=== PATIENT | male | born 1960 | race Caucasian/White ===

== ENCOUNTER 2019-10-15 06:41 | Emergency (ER) | payer OTHER ==
[~2019-10-15] VITALS: Ht 162.6 cm; Wt 86.2 kg
[2019-10-15 06:41] VITALS: BP 191/103
[2019-10-15] MEDS ORDERED: PRINIVIL10 MG PO (06:45)
[2019-10-15] MEDS ORDERED: ALPRAZOLAM 0.0.25 M1 PO (06:46)
[2019-10-15] MEDS ORDERED: HYDROCODON-ACE1 EA10 PO (06:48)
[2019-10-15 07:33] LABS: ABSOLUTE NEUTROPHILS 4.3 thou/uL (1.4-8.2); BASOPHILS 0.9 % (0.0-2.0); EOSINOPHILS 3.9 % (0.0-3.0); HEMATOCRIT 41.8 % (42.0-52.0); LYMPHOCYTES 26.9 % (24.0-44.0); MCH 29.2 pg (26.0-34.0); MCHC 33.6 g/dL (28.0-37.0); MCV 87.1 fL (80.0-100.0); MONOCYTES 10.7 % (1.0-8.0); PLATELET COUNT 368 thou/uL (150-400); POLYS 57.6 % (36.0-66.0); RDW 14.1 % (10.5-14.5); WBC 7.6 thou/uL (4.0-11.0)
[2019-10-15 07:46] LABS: CALCIUM 8.6 mg/dL (8.5-10.1); CREATININE 0.9 mg/dL (0.7-1.3); POTASSIUM 3.8 mmol/L (3.5-5.1)
[2019-10-15 09:19] VITALS: BP 159/105
[2019-10-15 09:27] LABS: URINE BILIRUBIN NEGATIVE (Negative); URINE BLOOD NEGATIVE (Negative); URINE CLARITY CLEAR; URINE COLOR YELLOW; URINE GLUCOSE-RANDOM* NEGATIVE (Negative); URINE KETONES NEGATIVE (Negative); URINE LEUKOCYTES NEGATIVE (Negative); URINE NITRITE NEGATIVE (Negative); URINE PROTEIN (DIPSTICK) NEGATIVE (Negative); URINE UROBILINOGEN 0.2 E.U./dl (0.2-1.0)
--- NOTE | 2019-10-15 09:31 | NUR ---
PT DENIES A PREFERRED PHARMACY DUE TO BEING IN A REHAB FACILITY AT THIS TIME.
[2019-10-15] MEDS ORDERED: AUGMENTIN 875-1 EACH PO ×8 (11:35→12:29)
[2019-10-15] MEDS ORDERED: CIPRODEX OTIC7.5 ML OTIC ×8 (11:35→12:29)
--- NOTE | 2019-10-15 11:44 | NUR ---
GAMALIEL CALLED AND SCHEDULED TO PICK PT UP AND TAKE BACK TO REHAB FACILITY
[2019-10-15 13:06] VITALS: BP 134/92
== END 2019-10-15 13:06 | disposition home or self-care (01) ==
LOC: ER 06:41 → EROBS 09:09 → ER 13:06
PROVIDERS: Emergency Medicine
DX: H70.92 Unspecified mastoiditis, left ear (principal); H92.01 Otalgia, right ear; M54.2 Cervicalgia; I10 Essential (primary) hypertension; Z79.899 Other long term (current) drug therapy; Z88.2 Allergy status to sulfonamides

== ENCOUNTER 2019-11-16 03:50 | Emergency (ER) | payer OTHER ==
[~2019-11-16] VITALS: Ht 165.1 cm; Wt 90.7 kg
[~2019-11-16 03:50] MED LIST: ALPRAZOLAM 0.0.25 M1 PO; AUGMENTIN 875-1 EACH PO; CIPRODEX OTIC7.5 ML OTIC; HYDROCODON-ACE1 EA10 PO; PRINIVIL10 MG PO
[2019-11-16] MEDS ORDERED: CELEXA10 MG PO (04:14)
[2019-11-16] MEDS ORDERED: MELATONIN3 M1 PO (04:16)
[2019-11-16] MEDS ORDERED: MONTELUKAST SODI4 M1 PO (04:17)
[2019-11-16] MEDS ORDERED: IBUPROFEN 800800 M1 PO (04:17)
[2019-11-16] MEDS ORDERED: TOPROL XL25 MG PO (04:18)
[2019-11-16] MEDS ORDERED: LISINOPRIL2.5 MG PO (04:19)
[2019-11-16] MEDS ORDERED: SINGULAIR 10 MG10 M1 PO (04:21)
[2019-11-16 06:13] VITALS: BP 133/79
== END 2019-11-16 06:14 ==
LOC: ER 03:50
DX: S50.02XA Contusion of left elbow, initial encounter (principal); I10 Essential (primary) hypertension; Z79.2 Long term (current) use of antibiotics; Z79.899 Other long term (current) drug therapy; Z88.2 Allergy status to sulfonamides; W18.39XA Other fall on same level, initial encounter; Y93.89 Activity, other specified; Y92.128 Other place in nursing home as the place of occurrence of the external cause; Y99.8 Other external cause status

== ENCOUNTER 2020-01-20 11:32 | Emergency (ER) | payer OTHER ==
[~2020-01-20] VITALS: Ht 162.6 cm; Wt 90.7 kg
[~2020-01-20 11:32] MED LIST changes: +CELEXA10 MG PO; +IBUPROFEN 800800 M1 PO; +LISINOPRIL2.5 MG PO; +MELATONIN3 M1 PO; +MONTELUKAST SODI4 M1 PO; +SINGULAIR 10 MG10 M1 PO; +TOPROL XL25 MG PO
[2020-01-20 13:13] VITALS: BP 170/107
== END 2020-01-20 13:14 ==
LOC: ER 11:32
DX: S42.402A Unspecified fracture of lower end of left humerus, initial encounter for closed fracture (principal); I10 Essential (primary) hypertension; Z79.899 Other long term (current) drug therapy; Z88.2 Allergy status to sulfonamides; X58.XXXA Exposure to other specified factors, initial encounter; Y93.89 Activity, other specified; Y92.89 Other specified places as the place of occurrence of the external cause; Y99.8 Other external cause status

== ENCOUNTER 2020-06-07 14:54 | Emergency (ER) | payer OTHER ==
[~2020-06-07] VITALS: Ht 165.1 cm; Wt 90.7 kg
[2020-06-07] MEDS ORDERED: HYDROCODON-ACE1 EAC7 PO ×2 (16:40→17:37)
[2020-06-07 17:47] VITALS: BP 132/87
== END 2020-06-07 17:52 | disposition home or self-care (01) ==
LOC: ER 14:54
DX: M25.522 Pain in left elbow (principal); I10 Essential (primary) hypertension; Z88.2 Allergy status to sulfonamides; Z79.899 Other long term (current) drug therapy